=== PATIENT | female | born 2000 | race Caucasian/White ===

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

== ENCOUNTER → 2019-12-09 12:47 | Outpatient (CLI) | payer BC, SELFPAY ==
[2016-01-22 20:38] VITALS: BMI 22.8
--- NOTE | 2019-12-09 12:54 | RAD_ITS ---
STUDY: X-RAY - LEFT ANKLE REASON FOR EXAM: Female, 19 years old. Soccer injury 10 days ago with bruising. Pain. TECHNIQUE: 3 view(s) of the ankle. COMPARISON: None. FINDINGS: Normal visualized distal tibia and fibula. Normal medial and lateral malleoli. Normal tibiotalar articulation and ankle mortise. Normal visualized talus and calcaneus. The visualized subtalar, talonavicular, calcaneocuboid and tarsal articulations are normal. Lateral soft tissue swelling. RAD/Ankle min 3 Views IMPRESSION: Lateral soft tissue swelling with no acute abnormality. Electronically Signed: Dennys Paez MD at 17:55 EST , Service support ,
--- NOTE | 2019-12-09 12:54 | RAD_ITS ---
STUDY: X-RAY - LEFT TIBIA AND FIBULA REASON FOR EXAM: Female, 19 years old. Soccer injury 10 days ago with bruising and pain. TECHNIQUE: 2 view(s) of the tibia and fibula were obtained. COMPARISON: None. FINDINGS: Normal visualized tibia. Normal visualized fibula. The soft tissue structures are unremarkable. RAD/Tibia & Fibula 2 Views IMPRESSION: Normal x-ray examination of the tibia and fibula. Electronically Signed: Dennys Paez MD at 17:55 EST , Service support ,
== END ==
PROVIDERS: Family Provider Family Medicine; PCP Family Medicine; Referring Provider Family Medicine; Visit Provider Family Medicine
DX: M25.472 Effusion, left ankle (principal)
CPT/HCPCS: 73590; 73610

== ENCOUNTER → 2020-08-23 14:39 | Outpatient (CLI) | payer BC, SELFPAY ==
[2016-01-22 20:38] VITALS: BMI 22.8
[2020-08-26 21:42] LABS: HPV APTIMA, High Risk Negative (Negative); HPV Reflexed? YES, CHARGE PATIENT
== END ==
PROVIDERS: PCP Family Medicine; Visit Provider Student in an Organized Health Care Education/Training Program
DX: Z12.4 Encounter for screening for malignant neoplasm of cervix (principal)
CPT/HCPCS: 87624; 88175; G0145

== ENCOUNTER → 2021-09-01 13:45 | Outpatient (CLI) | payer BC, SELFPAY ==
[2021-09-04 21:06] LABS: Chlamydia By Nucleic Acid AMP Negative (Negative)
[2021-09-05 07:55] LABS: Gonococcus By Nucleic Acid AMP Negative (Negative)
== END ==
PROVIDERS: PCP Family Medicine; Visit Provider Student in an Organized Health Care Education/Training Program
DX: Z11.3 Encounter for screening for infections with a predominantly sexual mode of transmission (principal)
CPT/HCPCS: 87491; 87591

== ENCOUNTER → 2024-01-06 | Outpatient (CLI) | payer BC, SELFPAY ==
[2024-01-10 21:16] LABS: HPV Reflexed? NOT INDICATED
== END | disposition home or self-care (01) ==
LOC: LABSPEC 12:01
PROVIDERS: PCP Family Medicine; Referring Provider Nurse Practitioner Women's Health; Visit Provider Nurse Practitioner Women's Health
DX: Z12.4 Encounter for screening for malignant neoplasm of cervix (principal)
CPT/HCPCS: 88175; G0145

== ENCOUNTER → 2025-04-21 | Outpatient (CLI) | payer BC, SELFPAY ==
[2025-04-21 15:59] LABS: Hemoglobin 13.9 g/dL (12.0-15.0); Mean Corp Hgb Conc 33.9 g/dL (32-36); Mean Corpuscular Hgb 28.4 pg (27.0-32.0); Mean Corpuscular Volume 83.7 fL (81-99); Mean Platelet Vol. 11.9 fl (6.2-12.0); Platelet Count 246 K/mm3 (150-450); RBC Distribution Width CV 13.2 % (11.6-14.6); RBC Distribution Width SD 40.5 fl (35.1-43.9)
[2025-04-21 16:32] LABS: Microalbumin,Random Urine < 12.0 mg/L (NO RANGE EST.); Microalbumin:Creatinine Ratio UNABLE TO CALCULATE mg/g CRE
[2025-04-21 17:36] LABS: ALB/GLOB Ratio 1.8 RATIO (0.9-2.4); AST(SGOT) 31 U/L (<=31); Alanine Aminotransfer ALT/SGPT 27 U/L (<=34); Albumin, Serum 4.7 g/dL (3.5-5.0); Alkaline Phosphatase 49 U/L (35-104); Anion Gap 14 (5-15); BUN 7 mg/dL (4-19); Calcium,Total 9.9 mg/dL (7.6-11.0); Carbon Dioxide 21.9 mmol/L (21.0-32.0); Chloride 102 mmol/L (98-108); Creatinine, Serum 0.81 mg/dL (0.70-1.20); EST Glomerular Filtration Rate 102 (>60); Globulin 2.7 g/dL (2.2-4.2); Glucose 113 mg/dL (70-99); Potassium 3.5 mmol/L (3.3-5.1); Protein, Total 7.4 g/dL (5.9-8.4); Sodium Level 138 mmol/L (133-145); Total Bilirubin 0.44 mg/dL (0.00-1.30)
== END | disposition home or self-care (01) ==
PROVIDERS: PCP Family Medicine; Referring Provider Nurse Practitioner Women's Health; Visit Provider Nurse Practitioner Women's Health
DX: Z31.430 Encounter of female for testing for genetic disease carrier status for procreative management (principal)
CPT/HCPCS: 36415; 80053; 82043; 82164; 82533; 82570; 84244; 84443; 85027

== ENCOUNTER → 2025-04-27 | Outpatient (CLI) | payer BC, SELFPAY ==
--- OUTSIDE RECORDS SUMMARY | 2025-04-27 08:07 | XMS RPT_ITS | CCD ---
Author Organization [facility] CliniSymt Care Team Providers Care Hadoop Software Engineer Name Role Phone Dr. Eliot Brown Primary Care Provider Dr. Eliot Brown Referring Provider Debbie STRAIGHT PIN MAKING MACHINE OPERATOR, STRAIGHT PIN MAKING MACHINE OPERATOR-C Alicia Attending Provider [phone] Kevin MIGUEL, Dr. Jacinto Primary Care Provider Dr. Orville Brown MD Referring Provider [phone] Dr. Lana Carroll DO Attending Provider Debbie STRAIGHT PIN MAKING MACHINE OPERATOR-CAlicia Attending Provider [phone] Debbie STRAIGHT PIN MAKING MACHINE OPERATOR-CAlicia Referring Provider [phone] Orville Brown Primary Care Unavailable Orville Brown Referring Unavailable Alicia Lewis NP Attending Unavailable Orville Brown Referring Unavailable Lana Carroll Attending Unavailabl e Orville Brown Primary Care Unavailable Orville Brown Referring Unavailable Debbie STRAIGHT PIN MAKING MACHINE OPERATORAlicia Attending Unavailable Orville Brown Primary Care Unavailable Debbie STRAIGHT PIN MAKING MACHINE OPERATORAlicia Attending Unavailable Debbie STRAIGHT PIN MAKING MACHINE OPERATORAlicia Referring Unavailable Orville Brown Primary Care Unavailable Medications Current Medications Medication Drug Class(es) Dates Sig (Normalized) Sig (Original) norethindrone 0.35 mg oral tablet (2 sources) Start: 01-18-2025 take 1 tablet by mouth once daily Norethindrone (Contraceptive) 0.35 mg tablet Active 0.35 mg PO daily January 18, 2025 1:00am Completed/Discontinued Medications Medication Drug Class(es) Dates Sig (Normalized) Sig (Original) Desogestrel-Ethiny l Estradiol (6 sources) Progestin, Estrogen Start: 01-06-2024 End: 01-18-2025 take 0.15 tablet by mouth once daily Desogestrel-Ethinyl Estradiol (Apri) 0.15-0.03 mg tablet Discontinued 1 {tbl} PO DAILY 84 January 06, 2024 11:17am January 18, 2025 8:52am Start: 01-06-2024 Desogestrel-Et hinyl Estradiol (Apri) 0.15-0.03 mg tablet Active 1 TABLET PO DAILY 84 January 06, 2024 10:17am Start: 01-06-2024 End: 01-06-2024 take 0.15 tablet by mouth once daily Desogestrel-Ethinyl Estradiol (Apri) 0.15-0.03 mg tablet Discontinued 1 {tbl} PO DAILY January 06, 2024 1:00am January 06, 2024 11:17am Start: 01-06-2024 End: 01-06-2024 Desogestrel-Ethinyl Estradio l (Apri) 0.15-0.03 mg tablet Discontinued 1 TABLET PO DAILY January 06, 2024 12:00am January 06, 2024 10:17am LORazepam 0.5 mg oral tablet (2 sources) Benzodiazepine Start: 10-05-2024 End: 01-08-2025 take 1 tablet by mouth once daily Lorazepam (Ativan) 0.5 mg tablet Discontinued 0.5 mg PO daily October 05, 2024 1:00am January 08, 2025 10:09am Multivitamin With Folic Acid (Thera) 1 TABLET tablet (3 sources) Start: 12-02-2013 End: 01-08-2025 take 1 tablet by mouth once daily Multivitamin With Folic Acid (Thera) 1 TABLET tablet Discontinued 1 {tbl} PO DAILY December 02, 2013 1:00am January 08, 2025 10:09am Start: 12-02-2013 take 1 tablet by seth th once daily Multivitamin With Folic Acid (Thera) 1 TABLET tablet Active 1 TABLET PO DAILY December 02, 2013 12:00am Problems Problem Classification Problem Date Documented Da te Episodic/Chronic Contraceptive and procreative management (4 sources) Patient encounter status; Translations: [Encounter for other general counseling and advice on contraception] 10-06-2024 Episodic Comment on above: No Pa needed. Ref# [id number] Other circulatory disease (1 source) Elevated blood-pressure reading, without diagnosis of hypertension; Translations: [Elevated blood-pressure reading, without diagnosis of hypertension] Onset: 04-21-2025 Episodic Results Test Name Value Interpretation Reference Range Facility Anion gap in Serum or Plasma Ordered By: Orville Brown on 04-21-2025 Anion gap [Moles/Vol] 14 mmol/L 5-15 [facility] BUN/creatinine ratioOrdered By: Orville Brown on 04-21-2025 Urea nitrogen/Creatinine [Mass ratio] 9.0 mg/mg Low 10-20 [facility] Bilirubin, totalOrdered By: Orville Brown on 04-21-2025 Bilirubin [Mass/Vol] 0.44 mg/dL 0.00-1.30 [facility] CBC-Complete Blood Cnt No Di ffon 04-21-2025 Erythrocyte distribution width (RBC) [Ratio] 13.2 % Normal 11.6-14.6 [facility] Comment on above: Order Comment: Order Date: 04/05/25 Order Info: [id number] - CBC Performed By: #### L 500.4050, L100.0500, L501.9520 #### [facility] [address] [place], [address] Hematocrit (Bld) [Volume fraction] 41.0 % Normal 37-47 [facility] Comment on above: Order Comment: Order Date: 04/05/25 Order Info: [id number] - CBC Performed By: #### L 500.4050, L100.0500, L501.9520 #### [facility] [address] [place], [address] Hemoglobin (Bld) [Mass/Vol] 13.9 g/dL Normal 12.0-15.0 [facility] Comment on above: Order Comment: Order Date: 04/05/25 Order Info: [id number] - CBC Performed By: #### L 500.4050, L100.0500, L501.9520 #### [facility] [address] [place], [address] MCH (RBC) [Entitic mass] 28.4 pg Normal 27.0-32.0 [facility] Comment on above: Order Comment: Order Date: 04/05/25 Order Info: [id number] - CBC Performed By: #### L 500.4050, L100.0500, L501.9520 #### [facility] [address] [place], [address] MCHC (RBC) [Mass/Vol] 33.9 g/dL Normal 32-36 [facility] Comment on above: Order Comment: Order Date: 04/05/25 Order Info: [id number] - CBC Performed By: #### L 500.4050, L100.0500, L501.9520 #### [facility] [address] [place], [address] MCV (RBC) [Entitic vol] 83.7 fL Normal 81-99 [facility] Comment on above: Order Comment: Order Date: 04/05/25 Order Info: [id number] - CBC Performed By: #### L 500.4050, L100.0500, L501.9520 #### [facility] [address] [place], [address] Platelet mean volume (Bld) [Entitic vol] 11.9 fL Normal 6.2-12.0 [facility] Comment on above: Order Comment: Order Date: 04/05/25 Order Info: [id number] - CBC Performed By: #### L 500.4050, L100.0500, L501.9520 #### [facility] [address] [place], [address] Platelets (Bld) [#/Vol] 246 10*3/uL Normal 150-450 [facility] Comment on above: Order Comment: Order Date: 04/05/25 Order Info: [id number] - CBC Performed By: #### L 500.4050, L100.0500, L501.9520 #### [facility] [address] [place], [address] RBC (Bld) [#/Vol] 4.90 10*6/uL Normal 4.2-5.4 [facility] Comment on above: Order Comment: Order Date: 04/05/25 Order Info: [id number] - CBC Performed By: #### L 500.4050, L100.0500, L501.9520 #### [facility] [address] [place], [address] RDW SD 40.5 fl Normal 35.1-43.9 [facility] Comment on above: Order Comment: Order Date: 04/05/25 Order Info: [id number] - CBC Performed By: #### L 500.4050, L100.0500, L501.9520 #### [facility] [address] [place], [address] WBC (Bld) [#/Vol] 7.0 10*3/uL Normal 4.4-11.0 [facility] Comment on above: Order Comment: Order Date: 04/05/25 Order Info: [id number] - CBC Performed By: #### L 500.4050, L100.0500, L501.9520 #### [facility] [address] [place], [address] Carbon dioxide, total [Moles /volume] in Central venous bloodOrdered By: Orville Brown on 04-21-2025 CO2 [Moles/Vol] 21.9 mmol/L 21.0-32.0 [facility] Chloride assayOrdered By: Manju Brown on 04-21-2025 Chloride [Moles/Vol] 102 mmol/L 98-108 [facility] Comprehensive Metabolic Prof ilon 04-21-2025 Albumin [Mass/Vol] 4.7 g/dL Normal 3.5-5.0 [facility] Comment on above: Order Comment: Order Date: 04/05/25 Order Info: 0786-1 - CMP Order Info: 6-3 - TSH Performed By: #### L 500.4050, L100.0500, L501.9520 #### [facility] [address] [place], [address] Albumin/Globulin [Mass ratio] 1.8 {ratio} Normal 0.9-2.4 [facility] Comment on above: Order Comment: Order Date: 04/05/25 Order Info: 0786-1 - CMP Order Info: 3015-3 - TSH Performed By: #### L 500.4050, L100.0500, L501.9520 #### [facility] [address] [place], [address] ALK PHOS 49 U/L Normal 35-104 [facility] Comment on above: Order Comment: Order Date: 04/05/25 Order Info: 0786- - [facility] Order Info: 3 - TSH Performed By: #### L 500.4050, L100.0500, L501.9520 #### [facility] [address] [place], [address] ALT [Catalytic activity/Vol] 27 U/L Normal <=34 [facility] Comment on above: Order Comment: Order Date: 04/05/25 Order Info: 0786- - CMP Order Info: 3 - TSH Performed By: #### L 500.4050, L100.0500, L501.9520 #### [facility] [address] [place], [address] AST [Catalytic activity/Vol] 31 U/L Normal <=31 [facility] Comment on above: Order Comment: Order Date: 04/05/25 Order Info: 0786-1 - CMP Order Info: 3015-3 - TSH Performed By: #### L 500.4050, L100.0500, L501.9520 #### [facility] [address] [place], [address] Bilirubin [Mass/Vol] 0.44 mg/dL Normal 0.00-1.30 [facility] Comment on above: Order Comment: Order Date: 04/05/25 Order Info: 0786-1 - CMP Order Info: 3016-3 - TSH Performed By: #### L 500.4050, L100.0500, L501.9520 #### [facility] [address] [place], [address] BUN/CRE 9.0 RATIO Low 10-20 [facility] Comment on above: Order Comment: Order Date: 04/05/25 Order Info: 0786-1 - CMP Order Info: 3015-3 - TSH Performed By: #### L 500.4050, L100.0500, L501.9520 #### [facility] [address] [place], [address] Calcium [Mass/Vol] 9.9 mg/dL Normal 7.6-11.0 [facility] Comment on above: Order Comment: Order Date: 04/05/25 Order Info: 0786-1 - CMP Order Info: 301-3 - TSH Performed By: #### L 500.4050, L100.0500, L501.9520 #### [facility] [address] [place], [address] Chloride [Moles/Vol] 102 mmol/L Normal 98-108 [facility] Comment on above: Order Comment: Order Date: 04/05/25 Order Info: 0786-1 - CMP Order Info: 301-3 - TSH Performed By: #### L 500.4050, L100.0500, L501.9520 #### [facility] [address] [place], [address] CO2 [Moles/Vol] 21.9 mmol/L Normal 21.0-32.0 [facility] Comment on above: Order Comment: Order Date: 04/05/25 Order Info: 0786-1 - CMP Order Info: 3016-3 - TSH Performed By: #### L 500.4050, L100.0500, L501.9520 #### [facility] [address] [place], [address] Creatinine [Mass/Vol] 0.81 mg/dL Normal 0.70-1.20 [facility] Comment on above: Order Comment: Order Date: 04/05/25 Order Info: 0786-1 - CMP Order Info: 3016-01 - TSH Performed By: #### L 500.4050, L100.0500, L501.9520 #### [facility] [address] [place], [address] GAP 14 Normal 5-15 [facility] Comment on above: Order Comment: Order Date: 04/05/25 Order Info: 0786 - CMP Order Info: 3016-01 - TSH Performed By: #### L 500.4050, L100.0500, L501.9520 #### [facility] [address] [place], [address] GFR/1.73 sq M.predicted among non-blacks MDRD (S/P/Bld) [Vol rate/Area] 102 mL/min/{1.73_m2} Normal >60 [facility] Comment on above: Order Comment: Order Date: 04/05/25 Order Info: 0786- - CMP Order Info: 3016-01 - TSH Result Comment: mL/m in/1.73m2 CKD-EPI Creatinine Equation (2020) Performed By: #### L 500.4050, L100.0500, L501.9520 #### [facility] [address] [place], [address] Globulin (S) [Mass/Vol] 2.7 g/dL Normal 2.2-4.2 [facility] Comment on above: Order Comment: Order Date: 04/05/25 Order Info: 0786-1 - CMP Order Info: 3 - TSH Performed By: #### L 500.4050, L100.0500, L501.9520 #### [facility] [address] [place], [address] Glucose [Mass/Vol] 113 mg/dL High 70-99 [facility] Comment on above: Order Comment: Order Date: 04/05/25 Order Info: 0786-1 - CMP Order Info: 301-3 - TSH Performed By: #### L 500.4050, L100.0500, L501.9520 #### [facility] [address] [place], [address] Potassium [Moles/Vol] 3.5 mmol/L Normal 3.3-5.1 [facility] Comment on above: Order Comment: Order Date: 04/05/25 Order Info: 0786-1 - CMP Order Info: 3015-3 - TSH Performed By: #### L 500.4050, L100.0500, L501.9520 #### [facility] [address] [place], [address] Sodium [Moles/Vol] 138 mmol/L Normal 133-145 [facility] Comment on above: Order Comment: Order Date: 04/05/25 Order Info: 0786- - [facility] Order Info: 3013 - TSH Performed By: #### L 500.4050, L100.0500, L501.9520 #### [facility] [address] [place], [address] T PROT 7.4 g/dL Normal 5.9-8.4 [facility] Comment on above: Order Comment: Order Date: 04/05/25 Order Info: 0786-1 - CMP Order Info: 301-3 - TSH Performed By: #### L 500.4050, L100.0500, L501.9520 #### [facility] [address] [place], [address] Urea nitrogen [Mass/Vol] 7 mg/dL Normal 4-19 [facility] Comment on above: Order Comment: Order Date: 04/05/25 Order Info: 0786-1 - CMP Order Info: [id number] - TSH Performed By: #### L 500.4050, L100.0500, L501.9520 #### [facility] [address] [place], [place], [address] Erythrocyte distribution wid th ratioOrdered By: Orville Brown on 04-21-2025 Erythrocyte distribution width (RBC) [Ratio] 13.2 % 11.6-14.6 [facility] Erythrocyte distribution wid th standard deviationOrdered By: [facility]fern[facility] Brown on 04-21-2025 Erythrocyte distribution width (RBC) [Ratio] 40.5 fl 35.1-43.9 [facility] Glomerular filtration rate ( GFR) estimation/1.73 sq m using serum, plasma, or whole bOrdered By: [facility]fern[facility] Brown on 04-21-2025 GFR/1.73 sq M.predicted among non-blacks MDRD (S/P/Bld) [Vol rate/Area] 102 mL/min/{1.73_m2} >60 [facility] Comment on above: mL/min/1.73m2 CKD-EP I Creatinine Equation (2020) Hematocrit Auto (Bld) [Volum e fraction]Ordered By: Orville Brown on 04-21-2025 Hematocrit (Bld) [Volume fraction] 41.0 % 37-47 [facility] Hemoglobin measurementOrdere d By: Orville Brown on 04-21-2025 Hemoglobin (Bld) [Mass/Vol] 13.9 g/dL 12.0-15.0 [facility] L509.6002on 04-21-2025 CORTISOL 10.90 ug/dL High 2.68-10.50 [facility] Comment on above: Order Comment: Order Date: 04/05/25 Order Info: 0786-1 - CMP Order Info: 3016 - TSH Performed By: #### L 509.6002, L900.0098 #### [facility] [address] [place], [place], [address] Laboratory - Chemistry and C hemistry - challengeOrdered By: Orville Brown on 04-21-2025 AST [Catalytic activity/Vol] 31 U/L <32 [facility] MCV (mean corpuscular volume ) determinationOrdered By: Orville Brown on 04-21-2025 MCV (RBC) [Entitic vol] 83.7 fL 81-99 [facility] Mean corpuscular hemoglobin (MCH) determinationOrdered By: Orville Brown on 04-21-2025 MCH (RBC) [Entitic mass] 28.4 pg 27.0-32.0 [facility] Mean corpuscular hemoglobin concentration (MCHC) determinationOrdered By: Orville Brown on 04-21-2025 MCHC (RBC) [Mass/Vol] 33.9 g/dL 32-36 [facility] Mean platelet volume determi nationOrdered By: Orville Brown on 04-21-2025 Platelet mean volume (Bld) [Entitic vol] 11.9 fL 6.2-12.0 [facility] Microalb:Creat Ratio,Random URon 04-21-2025 Creatinine [Mass/Vol] 60.60 mg/dL Normal 28.00-217.00 [facility] Comment on above: Performed By: #### L 502.0250 #### [facility] [address] [place], [place], [id number] MALB:CREAT UNABLE TO CALCULATE Normal [facility] Comment on above: Performed By: #### L 502.0250 #### [facility] [address] [place], [place], [id number] MICROALBUMIN,UR < 12.0 Normal NO RANGE EST. [facility] Comment on above: Performed By: #### L 502.0250 #### [facility] [address] [place], [address] Microalbumin/creat ratio urO rdered By: Orville Brown on 04-21-2025 Urine microalbumin/creatinine ratio measurement UNABLE TO CALCULATE mg/g CRE [facility] NATERAon 04-21-2025 NATURA SEE SCANNED REPORT Normal [facility] Comment on above: Performed By: #### L 509.6002, L900.0098 #### [facility] [address] [place], [address] Dust Operator Office Visit Reporton 04-21-2025 Dust Operator Office Visit Report [facility] [address], [address] [place] [address] OFFICE VISIT Date of Service: 04/21/25 MR#: [id number] Acct: [id number] Name: KEIHT MOHR Rep #: [id number] : 2000 Provider: CHLOE brown Age/Sex: 25/F Location: [facility] Status: Signed Intake Vital Signs 01/08/25 09:00 04/21/25 13:21 04/21/25 13:26 Height 5 ft 6 in 5 ft 6 in 5 ft 6 in Weight: 160 lb 2 oz 164 lb 8 oz BMI 25.8 26.5 BP 130/90 H 132/86 H Intake Visit Reasons: Fertility consult *copay $30 Chief Complaint: Fertility consult Account Representative Required: No Is patient in pain?: No Allergies No Known Allergies Allergy (Verified 04/21/25 13:21) Medications ???Medication ???Instructions ???Recorded ???Confirmed ???Type norethindrone (contraceptive) 0.35 0.35 mg PO QDAY #84 tabs 5 04/21/25 Rx mg tablet Is last menstrual period known: Yes Last Menstrual Period: 04/07/25 Post menopausal: No Patient : No : No PFSH Medical History H/O thyroglossal duct cyst Surgical History S/P wisdom tooth extraction Family History Grandfather Afib Father Afib Social History current occupational status: employed current occupation: [employer] Smoking Status: Never smoker alcohol intake: current alcohol intake frequency: holidays/special occasions only substance use type: does not use caffeine: Yes what type of physical activity do you participate in: aerobics frequency: 1-2 times per week seatbelt use: always do you feel safe at home: Yes 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 Her sister does genetic counseling. Their family does not have known positive history of 's family history is unknown due to adoption. She is still on oral contraceptives, oumar, and working well. Female Reproductive History Last Menstrual Period: 04/07/25 History 0 Elective abortions Hx Para Spontaneous abortions Hx # Term Pregnancies Ectopic pregnancies Hx # Pregnancies Multiple births # of living children ROS Const Constitutional: Reports system reviewed and no additional complaints, except as documented Eyes Eyes: Reports system reviewed and no additional complaints, except as documented GI GI: Denies abdominal pain or change in bowel habits : Reports as per HPI Exam Const General: cooperative and no acute distress Orientation: oriented x3 HENMT Head: normal to inspection and normocephalic Eyes General: appearance normal, both eyes and all related structures Neck Neck: normal visual inspection Resp Effort Inspection: normal respiratory effort Neuro Cognition: normal cognition Speech: speech normal Psych Appearance: grossly normal Mood: congruent mood Affect: normal affect Speech and Movement: speech and movement normal Attitude: cooperative Judgment: judgment good Coding Level of Care Code Off vis,est,level 3 Diagnoses Encounter for genetic counseling and testing Assessment and Plan Assessment and Plan (1) Encounter for genetic counseling and testing: Plan Patient will proceed with [facility] genetic test today. If any positive recessive genes, will then have complete testing. Discussed when to stop oumar, use of condoms, start of vitamins and optimal time for conception. RTO prn, positive UPT or annual exam 04/21/25 1356 Date Alicia Lewis NP STRAIGHT PIN MAKING MACHINE OPERATOR-C Cosigner Signature: Date (if applicable) CC: Normal [facility] Platelet countOrdered By: Manju Brown on 04-21-2025 Platelets (Bld) [#/Vol] 246 10*3/uL 150-450 [facility] Potassium measurement (mass/ volume)Ordered By: Orville Brown on 04-21-2025 Potassium (Unsp spec) [Mass/Vol] 3.5 mmol/L 3.3-5.1 [facility] RBC Auto (Bld) [#/Vol]Ordere d By: Orville Brown on 04-21-2025 RBC (Bld) [#/Vol] 4.90 10*6/uL 4.2-5.4 [facility] Random urine creatinine levon urement (mass/volume)Ordered By: Orville Brown on 04-21-2025 Creatinine Unsp time (U) [Mass/Vol] 60.60 mg/dL 28.00-217.00 [facility] Serum creatinine measurement (mass/volume)Ordered By: Orville Brown on 04-21-2025 Creatinine [Mass/Vol] 0.81 mg/dL 0.70-1.20 [facility] Serum globulin measurementOr dered By: Orville Brown on 04-21-2025 Globulin (S) [Mass/Vol] 2.7 g/dL 2.2-4.2 [facility] Serum glucose measurement (m ass/volume)Ordered By: Orville Brown on 04-21-2025 Glucose [Mass/Vol] 113 mg/dL High 70-99 [facility] Serum or plasma alanine fierro otransferase (ALT) measurementOrdered By: Orville Brown on 04-21-2025 ALT [Catalytic activity/Vol] 27 U/L <35 [facility] Serum or plasma albumin levon urement (mass/volume)Ordered By: Orville Brown on 04-21-2025 Albumin [Mass/Vol] 4.7 g/dL 3.5-5.0 [facility] Serum or plasma albumin/glob ulin mass ratioOrdered By: Orville Brown on 04-21-2025 Albumin/Globulin [Mass ratio] 1.8 {ratio} 0.9-2.4 [facility] Serum or plasma alkaline edward sphatase measurementOrdered By: Orville Brown on 04-21-2025 ALP [Catalytic activity/Vol] 49 U/L 35-104 [facility] Serum or plasma calcium levon urement (mass/volume)Ordered By: Orville Brown on 04-21-2025 Calcium [Mass/Vol] 9.9 mg/dL 7.6-11.0 [facility] Serum or plasma cortisol dc surement (mass/volume)Ordered By: Orville Brown on 04-21-2025 Cortisol [Mass/Vol] 10.90 ug/dL High 2.68-10.50 [facility] Serum or plasma urea nitroge n measurement (mass/volume)Ordered By: Orville Brown on 04-21-2025 Urea nitrogen [Mass/Vol] 7 mg/dL 4-19 [facility] Sodium levelOrdered By: Valerie Brown on 04-21-2025 Sodium [Moles/Vol] 138 mmol/L 133-145 [facility] Specific [place], Urineon SP.GR. DIPSTX 1.010 Normal 1.002-1.030 [facility] Comment on above: Order Comment: CC Performed By: #### L 986.8256 #### [facility] [address] [place], [place], [address] TSH DL <= 0.005 mIU/L QnOrde red By: Orville Brown on 04-21-2025 TSH Qn 2.630 uIU/mL 0.300-4.200 [facility] Thyroid Stim Hormone (TSH)on 04-21-2025 TSH 2.630 uIU/mL Normal 0.300-4.200 [facility] Comment on above: Order Comment: Order Date: 04/05/25 Order Info: 0786-1 - CMP Order Info: 3016-3 - TSH Performed By: #### L 500.4050, L100.0500, L501.9520 #### [facility] [address] [place], [place], [id number] Total proteinOrdered By: Cyndie Brown on 04-21-2025 Protein [Mass/Vol] 7.4 g/dL 5.9-8.4 [facility] Urine albumin measurement [facility] detection limit of 20 mg/L or less (mass/volume)Ordered By: Orville Brown on 04-21-2025 Albumin DL <= 20 mg/L (U) [Mass/Vol] < 12.0 mg/L NO RANGE EST. [facility] Urine specific gravity measu rementOrdered By: Orville Brown on 04-21-2025 Specific gravity (U) [Rel density] 1.010 1.002-1.030 [facility] White blood cell (WBC) count Ordered By: [facility] Brown on 04-21-2025 WBC (Bld) [#/Vol] 7.0 10*3/uL 4.4-11.0 [facility] Dust Operator Office Visit Reporton 01-08-2025 Dust Operator Office Visit Report [facility] [address], [address] [place] [address] OFFICE VISIT Date of Service: 01/08/25 MR#: [id number] Acct: [id number] Name: KEITH MOHR Marina Rep #: [id number] : 2000 Provider: Dr. 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 Required: No Is patient in pain?: No Allergies No Known Allergies Allergy (Verified 01/08/25 09:01) Medications ???Medication ???Instructions ???Recorded ???Confirmed ???Type desogestrel 0.15 mg-ethinyl 1 tab PO DAILY #84 tabs 01/06/24 1 12/05/23 Rx estradiol 0.03 mg tablet (Apri) Post menopausal: No Patient : No : No [facility] Medical History H/O thyroglossal duct cyst Surgical History S/P wisdom tooth extraction Family History Grandfather Afib Father Afib Social History (Updated 01/08/25 @ 09:10 by Sole Snow) current occupational status: employed current occupation: [employer] Smoking Status: Never smoker alcohol intake: current alcohol intake frequency: holidays/special occasions only substance use type: does not use caffeine: Yes what type of physical activity do you participate in: aerobics frequency: 1-2 times per week seatbelt use: always do you feel safe at home: Yes 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 recently . on combination ocps. bp was elevated initially when she got here. She is not interested in an LARC contraceptive options at this time. She states that she gets pretty bad anxiety at doctor's offices. has bp cuff at home and wants to see what her pressures are at home before stopping ocps. her and her partner plan to have babies in 5+ years from now. Last PAP: 01/06/24 History of abnormal PAP: no Last mammogram: n/a History of abnormal mammogram: n/a Colon cancer screening: n/a Other preventative health care screenings: up to date Coding Level of Care Code Off vis,est,prev 18-39yrs Diagnoses Encounter for routine gynecological examination Z01.419 Assessment and Plan Assessment and Plan (1) Encounter for routine gynecological examination: Plan: Cervical cancer screening: pap up to date Breast cancer screening: start age 40 STD prevention and contraceptive options including their risks, benefits, and alternatives were reviewed with the patient and she chooses: combination ocps- will need to call us next week with home bp reads before I can refill the combo ocp. if higher than 140's/90's will change this over to progesterone only ocp. Encouraged maintenance of a healthy weight and active lifestyle and handout given. Calcium/vitamin D recommendations provided. Annual exam handout including recommendations for good health guidelines and basic screening information given. Problem list up to date, see problem list details for any additional plan information. follow up in one year for annual health maintenance exam or sooner if needed. 01/08/25 0925 Date Lana Carroll DO Cosigner Signature: Date (if applicable) CC: Normal [facility] Dust Operator Office Visit Reporton 10-05-2024 Dust Operator Office Visit Report [facility] [address], [address] [place] [address] OFFICE VISIT Date of Service: 10/05/24 MR#: [id number] Acct: [id number] Name: KEITH MOHR Rep #: [id number] : 2000 Provider: CHLOE brown Age/Sex: 24/F Location: [facility] Status: Signed Intake Vital Signs 01/06/24 10:09 10/05/24 08:03 10/05/24 08:07 Height 5 ft 6 in 5 ft 6 in 5 ft 6 in Weight: 161 lb BMI 25.9 BP 120/76 Intake Visit Reasons: IUD CONSULT (UNSURE WHAT SHE WANTS) Chief Complaint: IUD consult Account Representative Required: No Is patient in pain?: No Allergies No Known Allergies Allergy (Verified 10/05/24 08:02) Medications ???Medication ???Instructions ???Recorded ???Confirmed ???Type multivitamin with folic acid 400 1 tab PO DAILY 12/02/13 10/05/24 History mcg tablet (Thera) desogestrel 0.15 mg-ethinyl 1 tab PO DAILY #84 tabs 01/06/24 10/05/24 Rx estradiol 0.03 mg tablet (Apri) lorazepam 0.5 mg tablet (Ativan) 0.5 mg PO QDAY take 30 min prior 10/05/24 10/05/24 Rx to procedure #1 TAB Is last menstrual period known: Yes Last Menstrual Period: 09/02/24 Post menopausal: No Patient : No : No PFSH Medical History H/O thyroglossal duct cyst Surgical History S/P wisdom tooth extraction Family History Grandfather Afib Father Afib Social History current occupational status: employed current occupation: [employer] Smoking Status: Never smoker alcohol intake: current alcohol intake frequency: holidays/special occasions only substance use type: does not use seatbelt use: always do you feel safe at home: Yes additional social history: 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 She does ok taking daily oral meds but wants to discuss IUD. She is concerned about pain with insertion. States does not have a very high pain tolerance. She does tolerate speculum well Female Reproductive History Last Menstrual Period: 09/02/24 History 0 Elective abortions Hx Para Spontaneous abortions Hx # Term Pregnancies Ectopic pregnancies Hx # Pregnancies Multiple births # of living children ROS Const Constitutional: Reports system reviewed and no additional complaints, except as documented Eyes Eyes: Reports system reviewed and no additional complaints, except as documented GI GI: Denies abdominal pain or change in bowel habits : Reports as per HPI Exam Const General: cooperative and no acute distress Orientation: oriented x3 HENMT Head: normal to inspection and normocephalic Eyes General: appearance normal, both eyes and all related structures Neck Neck: normal visual inspection Resp Effort Inspection: normal respiratory effort Neuro Cognition: normal cognition Speech: speech normal Psych Appearance: grossly normal Mood: congruent mood Affect: normal affect Speech and Movement: speech and movement normal Attitude: cooperative Judgment: judgment good Coding Level of Care Code Off vis,est,level 3 Diagnoses General counseling and advice for contraceptive management Z30.09 Assessment and Plan Assessment and Plan (1) General counseling and advice for contraceptive management: Status: Acute Comment: Anibal ARAUJO sent Medications: New lorazepam (Ativan) 0.5 mg PO QDAY 1 TAB 0RF take 30 min prior to procedure Plan Discussed IUD types, nexplanon and nuvaring. She wishes to proceed with Mirena IUD Discussed use, benefits, risks and side effects of mirena iud and condom use. Written information given. Rx ativan to be taken prior to procedure RTO insertion with menses. GAYLE sent 10/05/24 0835 Date Alicia Lewis NP STRAIGHT PIN MAKING MACHINE OPERATOR-C Sukhjinder Signature: Date (if applicable) CC: Normal [facility] Vital Signs Date Time Vital Sign Value Performing Clinician Jayi agueda 04-21-2025 13:26-0400 Body height 167.[address] Orville Brown MD Work Phone: [facility] 04-21-2025 13:21-0400 Body mass index (BMI) [Ratio] 26.5 kg/m2 Dr. Orville Brown MD Work Phone: [facility] 04-21-2025 13:21-0400 Body weight 74.[address] Orville Brown MD Work Phone: [facility] 04-21-2025 13:21-0400 Diastolic blood pressure 86 mm[Hg] Dr. Orville Brown MD Work Phone: [facility] 04-21-2025 13:21-0400 Systolic blood pressure 132 mm[Hg] Dr. Orville Brown MD Work Phone: [facility] 01-08-2025 09:00-0500 Body mass index (BMI) [Ratio] 25.8 kg/m2 Dr. Orville Brown MD Work Phone: [facility] 01-08-2025 09:00-0500 Body weight 72.[address] Orville Brown MD Work Phone: [facility] 01-08-2025 09:00-0500 Diastolic blood pressure 90 mm[Hg] Dr. Orville Brown MD Work Phone: [facility] 01-08-2025 09:00-0500 Systolic blood pressure 130 mm[Hg] Dr. Orville Brown MD Work Phone: [facility] 01-06-2024 10:09-0500 Body height 167.[address] Eliot vera Work Phone: [facility] 01-06-2024 10:07-0500 Body mass index (BMI) [Ratio] 24.7 kg/m2 Dr. Eliot Brown Work Phone: [facility] 01-06-2024 10:07-0500 Body weight 69.[address] Eliot vera Work Phone: [facility] 01-06-2024 10:07-0500 Diastolic blood pressure 84 mm[Hg] Dr. Eliot Brown Work Phone: [facility] 01-06-2024 10:07-0500 Systolic blood pressure 128 mm[Hg] Dr. Eliot Brown Work Phone: [facility] Encounters Encounter Date Encounter Type Care Provider Facility Start: 04-21-2025 End: 04-21-2025 Patient encounter procedure Alicia CORONA -[facility] Work Phone: Start: 04-21-2025 End: 04-21-[address] Orville Brown MD Work Phone: [facility] Work Phone: Start: 01-08-2025 End: 01-08-[address] Lana Carroll DO [facility] Work Phone: Start: 01-08-2025 End: 01-08-[address] Lana Carroll DO [facility] Start: 01-08-2025 End: 01-08-2025 ambulatory Orville Brown Facility:[facility] Start: 10-05-2024 End: 10-05-2024 ambulatory Orville Brown Facility:[facility] Start: 01-06-2024 End: 01-06-[address] Eliot Brown Work Phone: [facility] Work Phone: Start: 01-06-2024 End: 01-06-[address] Eliot Brown Work Phone: [facility] Work Phone: Start: 01-06-2024 End: 01-06-[address] Eliot Brown Work Phone: [facility] Work Phone: Procedures Date Procedure Procedure Detail Performing Clinician Start: 04-21-[address] Cas Bronw MD Work Phone: Plan of Treatment Date Care Activity Detail Author Start: 04-21-2025 Urine microalbumin/c reatinine ratio measurement [facility] Start: 04-21-2025 Procedure [facility] Start: 01-06-2024 Liquid based cervica l cytology screening [facility] Alanine aminotransfe rase [Enzymatic activity/volume] in Serum or Plasma [facility] Albumin [Mass/volume ] in Serum or Plasma [facility] Aldosterone [Mass/vo lume] in Serum or Plasma [facility] Alkaline phosphatase [Enzymatic activity/volume] in Serum or Plasma [facility] Angiotensin converti ng enzyme [Enzymatic activity/volume] in Serum or Plasma [facility] Anion gap in Serum or Plasma [facility] Bilirubin, total measurement [facility] BUN/Creatinine ratio [facility] Calcium [Mass/volume ] in Serum or Plasma [facility] Carbon dioxide, tota l [Moles/volume] in Central venous blood [facility] Cortisol [Mass/volum e] in Serum or Plasma [facility] Creatinine [Mass/vol ume] in Serum or Plasma [facility] Creatinine [Mass/vol ume] in Urine collected for unspecified duration [facility] Erythrocyte mean cor puscular volume determination [facility] Glucose [Mass/volume ] in Serum or Plasma [facility] Hematocrit [Volume F raction] of Blood [facility] Hemoglobin [Mass/volume] in Blood [facility] Leukocytes [#/volume] in Blood [facility] Mean corpuscular hem oglobin concentration determination [facility] Mean corpuscular hem oglobin determination [facility] Measurement of renal function [facility] Microalbumin [Mass/v olume] in Urine [facility] Path report.final Dx Spec [facility] Platelets [#/volume] in Blood [facility] Potassium measurement [facility] Red blood cell count [facility] Red cell distributio n width determination [facility] Serum chloride measurement [facility] Sodium measurement [facility] Thyroid stimulating hormone measurement [facility] Total protein measurement [facility] Urea nitrogen [Mass/ volume] in Serum or Plasma [facility] Payers Date Payer Category Payer Unknown [id number] 2024 Self-pay [id number] 2024 Unknown [id number] Private Health Insurance [employer]ET[employer] [id number] Unknown [id number] Unknown [id number] Unknown [id number] Unknown [id number] Social History Date Type Detail Facility Start: 01-06-2024 Tobacco smoking stat [facility] Unknown if ever smoked [facility] Start: 2000 Sex Assigned At Female [facility] Start: [facility]08[facility] Progress note 04-21-2025 Note Date & Type Note Facility 04-21-2025 Progress note [facility] Evaluation note 01-08-2025 Note Date & Type Note Facility 01-08-2025 Evaluation note Diagnosis Onset Date Resolution Encounter for routine gynecological examination noneactive January 08 8:54am Encounter for genetic counseling and testing noneactive April 21, 2025 1:19pm [facility] Work Phone: Evaluation note Note Date & Type Note Facility Evaluation note No assessment information availa ble [facility] Work Phone: Progress note Note Date & Type Note Facility Progress note Note Date/Time April 21, 2025 1:56p m [facility] [address], [address] [place] [address] OFFICE VISIT Date of Service: 04/21/25 MR#: [id number] Acct: [id number] Name: KEITH MOHR Marina Rep #: [id number] : 2000 Provider: CHLOE Lewis Age/Sex: 25/F Location: [facility] Status: Signed Intake Vital Signs 01/08/25 09:00 04/21/25 13:21 04/21/25 13:26 Height 5 ft 6 in 5 ft 6 in 5 ft 6 in Weight: 160 lb 2 oz 164 lb 8 oz BMI 25.8 26.5 BP 130/90 H 132/86 H Intake Visit Reasons: Fertility consult *copay $30 Chief Complaint: Fertility consult Account Representative Required: No Is patient in pain?: No Allergies No Known Allergies Allergy (Verified 04/21/25 13:21) Medications ?Medication ?Instructions ?Recorded ?Confirmed ?Type norethindrone (contraceptive) 0.35 0.35 mg PO QDAY #84 tabs 01/18/25 04/21/25 Rx mg tablet Is last menstrual period known: Yes Last Menstrual Period: 04/07/25 Post menopausal: No Patient : No : No PFSH Medical History H/O thyroglossal duct cyst Surgical History S/P wisdom tooth extraction Family History Grandfather Afib Father Afib Social History current occupational status: employed current occupation: 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 Her sister does genetic counseling. Their family does nothave known positive history of 's family history is unknown due to adoption. She is still on oral contraceptives, oumar, and working well. Female Reproductive History Last Menstrual Period: 04/07/25 History 0 Elective abortions Hx Para Spontaneous abortions Hx # Term Pregnancies Ectopic pregnancies Hx # Pregnancies Multiple births # of living children ROS Const Constitutional: Reports system reviewed and no additional complaints, except as documented Eyes Eyes: Reports system reviewed and no additional complaints, except as documented GI GI: Denies abdominal pain or change in bowel habits : Reports as per HPI Exam Const General: cooperative and no acute distress Orientation: oriented x3 HENMT Head: normal to inspection and normocephalic Eyes General: appearance normal, both eyes and all related structures Neck Neck: normal visual inspection Resp Effort & Inspection: normal respiratory effort Neuro Cognition: normal cognition Speech: speech normal Psych Appearance: grossly normal Mood: congruent mood Affect: normal affect Speech and Movement: speech and movement normal Attitude: cooperative Judgment: judgment good Coding Level of Care Code Off vis,est,level 3 Diagnoses Encounter for genetic counseling and testing Assessment and Plan Assessment and Plan (1) Encounter for genetic counseling and testing: Plan Patient will proceed with [facility] genetic test today. If any positive recessivegenes, will then have complete testing. Discussed when to stop oumar, use of condoms, start of vitamins and optimal time for conception. RTO prn, positive UPT or annual exam 04/21/25 1356 <Electronically signed by Alicia herron STRAIGHT PIN MAKING MACHINE OPERATOR STRAIGHT PIN MAKING MACHINE OPERATOR-C> Date _ Alicia Lewis STRAIGHT PIN MAKING MACHINE OPERATOR STRAIGHT PIN MAKING MACHINE OPERATOR-C Cosigner Signature: Date (if applicable) CC: ~ [facility] Work Phone: Reason for referral (narrative) Note Date & Type Note Facility Reason for referral (narrative) No reason for referral information available [facility] Work Phone: Chief Complaint and Reason for Visit Chief Complaint PAP exam, fmr [facility] pt Chief Complaint Admit Date Annual (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) January 08, 2025 8:54am Fertility consult *copay $30 April 21, 2 025 1:19pm Reason for Visit Admit Date Encounter for routine gynecological exam ination January 08, 2025 8:54am Encounter for genetic counseling and junie ting April 21, 2025 1:19pm Family History Relationship Condition Age at Onset Recorded Date/T ajay grandfather Atrial fibrillation Unknown father Atrial fibrillation Unknown Advance Directives Advance Directive Response Recorded Date/ Time Living Will No January 22 016 8:46pm Power of Oil Paint Shader No January 22, 2016 8:46pm Advance Directive Response Recorded Date/ Time Living Will No January 22 016 9:46pm Do you have a Healthcare Power of Oil Paint Shader? No January 22, 2016 9:46pm Summary Purpose Additional Source Comments Care Teams (unrecognized sec tion and content) Team Status: Active Member Role Status Dates Dr. Eliot Brown MD Family Provider Active Dr. Eliot Brown MD Primary Care Provider Activ e Team Status: Inactive Member Role Status Dates Dr. Eliot Brown MD Primary Care Provider, Refe rring Provider Active Alicia Lewis STRAIGHT PIN MAKING MACHINE OPERATOR, STRAIGHT PIN MAKING MACHINE OPERATOR-C Attending Provider Active Team Status: Inactive Member Role Status Dates Dr. Eliot Brown MD Primary Care Provider Activ e Alicia Lewis STRAIGHT PIN MAKING MACHINE OPERATOR, STRAIGHT PIN MAKING MACHINE OPERATOR-C Attending Provider, Referring Provider Active Team Status: Active Member Role Status Dates Dr. Orville Brown MD Primary Care Provider Acti ve Team Status: Inactive Member Role Status Dates Dr. Orville Brown MD Primary Care Provider Acti ve Start: January 08, 2025 End: January 08, 2025 Dr. Orville Brown MD Referring Provider Active Start: January 08, 2025 End: January 08, 2025 Dr. Lana Carroll DO Attending Provider Activ e Start: January 08, 2025 End: January 08, 2025 Team Status: Inactive Member Role Status Dates Dr. Orville Brown MD Primary Care Provider Acti ve Start: April 21, 2025 End: April 21, 2025 Dr. Orville Brown MD Referring Provider Active Start: April 21, 2025 End: April 21, 2025 Alicia Lewis STRAIGHT PIN MAKING MACHINE OPERATOR, STRAIGHT PIN MAKING MACHINE OPERATOR-C Attending Provider Active Start: April 21, 2025 End: April 21, 2025 Team Status: Active Member Role Status Dates Dr. Orville Brown MD Primary Care Provider Acti ve Start: April 21, 2025 Alicia Lewis STRAIGHT PIN MAKING MACHINE OPERATOR, STRAIGHT PIN MAKING MACHINE OPERATOR-C Attending Provider Active Start: April 21, 2025 Alicia Lewis STRAIGHT PIN MAKING MACHINE OPERATOR, STRAIGHT PIN MAKING MACHINE OPERATOR-C Referring Provider Active Start: April 21, 2025 Team Status: Inactive Member Role Status Dates Dr. Orville Brown MD Primary Care Provider Acti ve Start: April 21, 2025 End: April 21, 2025 Alicia Lewis STRAIGHT PIN MAKING MACHINE OPERATOR, STRAIGHT PIN MAKING MACHINE OPERATOR-C Attending Provider Active Start: April 21, 2025 End: April 21, 2025 Alicia Lewis STRAIGHT PIN MAKING MACHINE OPERATOR, STRAIGHT PIN MAKING MACHINE OPERATOR-C Referring Provider Active Start: April 21, 2025 End: April 21, 2025 Goals (unrecognized section and content) Goals may be documented in a n alternate sectionGoals may be documented in an alternate sectionGoals may be documented in an alternate section INFORMATION SOURCE (unrecogn ized section and content) DATE CREATED AUTHOR 04/22/2025 [facility] FOR RECORDS PERTAINING TO PATIENTS WHO ARE OR HAVE BEEN ENROLLED IN A CHEMICAL DEPENDENCY/SUBSTANCEABUSE PROGRAM, SOME INFORMATION MAY BE OMITTED. This clinical summary was aggregated from multiple sources. Caution should be exercised in using it in the provision of clinical care. This summary normalizes information from multiple sources, and as a consequence, information in this document may materially change the coding, format and clinical context of patient data. In addition, data may be omitted in some cases. CLINICAL DECISIONS SHOULD BE BASED ON THE PRIMARY CLINICAL RECORDS. [employer] provides no warranty or guarantee of the accuracy or completeness of information in this document.
== END | disposition home or self-care (01) ==
PROVIDERS: PCP Family Medicine; Referring Provider Family Medicine; Visit Provider Family Medicine
DX: N94.6 Dysmenorrhea, unspecified (principal)
CPT/HCPCS: 36415